=== PATIENT | female | born 1940 | race Caucasian/White ===

== ENCOUNTER → 2023-06-23 12:32 | Outpatient (REF) | payer MEDICARE, SELFPAY | LOC: MRI 12:32 | PROVIDERS: ATTENDING PHYSICIAN Internal Medicine Critical Care Medicine; FAMILY PHYSICIAN Family Medicine | DX: K86.89 Other specified diseases of pancreas (principal) | CPT/HCPCS: 74183; A9575 ==

== ENCOUNTER 2023-10-03 18:15 | Emergency (ER) | payer MEDICARE, SELFPAY ==
[2023-10-03 18:21] VITALS: BP 162/99
--- NOTE | 2023-10-03 19:39 | ED.GENMED ---
History of Present Illness
General
Chief Complaint: Fall
Source: patient
Exam Limitations: none
Time Seen by Provider: 10/03/23 19:26
History of Present Illness
History of Present Illness:
83-year-old female tripped and fell landing on her right shoulder. Also hit both her knees. Slight contusion to the right. No LOC. No anticoagulation. Clearly major pain is to the right shoulder area. Still has some minor bilateral knee pain
although able to ambulate. No facial pain no headache no nausea or vomiting.
Past History
Past History
ED Past Medical History: HTN
ED Past Surgical History:
Social History
Tobacco: Non-smoker
Alcohol: None
Personal:
Living: alone
Review of Systems
Review of Systems
All Other Systems: Not applicable
Respiratory: Reports no symptoms
Cardiac: Reports no symptoms
ABD/GI: Reports no symptoms
Phy Exam
Physical Exam
Physical Exam:
TRAUMA EXAM:
VITAL SIGNS: Vital signs reviewed, cooperative
DISTRESS: No active disease
EYES: Pupils reactive, minimal area of ecchymosis/contusion at the right suborbital area.
NOSE: No deformity or epistaxis
FACE AND SCALP: No scalp or facial trauma
NECK: Supple nontender
RESPIRATORY: No distress, no tender chest wall
CARDIAC: No murmur, pulses equal and strong
ABDOMEN: Soft nontender
SKIN: Slight area of ecchymosis under the right eye. Slight contusion/hematoma over the left patella.
EXTREMITIES: Swelling tenderness to the right shoulder. Self splinting. No AC tenderness. No clavicle tenderness. Right lower extremity with very minimal right patellar tenderness. Able to straight leg raise. No deformity. No laxity. Left
patella with a more significant hematoma contusion. Questionable palpation of the patellar defect although able to straight leg raise. Hips normal. Right upper extremity with good distal pulses and color. Right wrist forearm and elbow all within
normal limits
NEUROLOGICAL: Alert, oriented, no motor deficits
PSYCH: Mood affect normal
Course
Orders/Labs/Results
Orders:
Orders
10/03/23 18:23
Shoulder, Right, Trauma [CR Shoulder, Trauma - Right] Urgent
Comment:
Reason For Exam: fall
10/03/23 19:38
Shoulder Immobilizer Right- Tx ONCE
Acetaminophen [Tylenol] 650 mg PO NOW STA
Ibuprofen [Motrin] 400 mg PO NOW STA
Knee, Left 4 or More Views [CR Knee - Left 4 Or More View*] Urgent
Comment:
Reason For Exam: trauma
10/03/23 21:38
Knee Immobilizer Left-Treatmen ONCE
Vital Signs
Initial and Last Documented VS:
Initial Vital Signs
Temp Pulse Resp BP Pulse Ox
98.4 F 83 20 162/99 97
10/03/23 18:21 10/03/23 18:21 10/03/23 18:21 10/03/23 18:21 10/03/23 18:21
Last Documented Vital Signs
Temp Pulse Resp BP Pulse Ox
98.4 F 80 19 156/89 97
10/03/23 18:21 10/03/23 21:55 10/03/23 21:55 10/03/23 21:55 10/03/23 21:55
MDM/Problems Addressed
Differential Diagnosis Includes:
No signs of any major head injury. No anticoagulation. No indication for CT scan. Chest is benign abdomen is benign neurologically stable. We will x-ray the left knee with at least the remote chance of a patellar fracture. Although able to
straight leg raise. X-ray sent to orthopedics. Immobilizer and follow-up.
*Radiology
Radiology exam reviewed: preliminary read by ED provider (Patella fracture. Proximal humerus fracture) and radiology read reviewed (Patella fracture/proximal humerus fracture)
*Critical Care Note
Total Time (30-74mins, 75-104mins- exclusive of procedures): Not Applicable
Update Note
Update Note:
Reviewed with orthopedics. Shoulder immobilizer. Knee immobilizer and follow-up
ED Attending Note
-
Portions of this chart may have been created with voice recognition software.� Occasional wrong word or��sound alike� substitutions may have occurred due to the inherent limitations of voice recognition software.
Discharge Plan
Departure
Patient Disposition: Home (Routine Discharge)
Date of Disposition: 10/03/23
Time of Disposition: 21:38
Patient with high blood pressure during this ER visit?: Yes
Discharge Problem:
Proximal right humerus fracture, Patella fracture left, elevated blood pressure reading
Instructions: Patella Fracture (DC), Upper Arm Fracture ED, BLOOD PRESSURE
Prescriptions:
No Action
pantoprazole 40 mg Tablet,Delayed Release (Dr/Ec)
40 mg PO DAILY
valsartan 80 mg tablet
80 mg PO DAILY
PreserVision AREDS 14,320-226-200 [id number] capsule
1 cap PO BID
Referrals:
Judd Sun MD [Active] - Follow up in 2-3 days
UNKNOWN - PT DOES,NOT KNOW [Family Provider] -
Activity Restrictions/Additional Instructions:
Call the orthopedist first thing tomorrow morning to be seen in the next few days
Advil or Motrin for pain. Take with food. You could also add Tylenol
Interventions
Interventions:
*Risk Screen - Suicide Last Done: 10/03/23 18:21
*General Assessment Last Done: 10/03/23 18:21
*Neglect/Abuse Screening Last Done: 10/03/23 18:21
ED- Fall Risk Assessment Last Done: 10/03/23 20:53
*ED COVID-19 Vaccine History Last Done: 10/03/23 20:53
*Nursing Disposition Last Done: 10/03/23 21:56
ED-Musculoskeletal Assessment Last Done: 10/03/23 20:53
ED- Neurological Assessment Last Done: 10/03/23 20:53
ED-Skin Assessment Last Done: 10/03/23 20:53
Discharge Date and Time
Discharge Date/Time: 10/03/23 21:56
Print Language: SAO TOMEAN
[2023-10-03] MEDS: TYLENOL 650 MG PO (19:48)
[2023-10-03] MEDS: MOTRIN 400 MG PO (19:49)
[2023-10-03 21:55] VITALS: BP 156/89
== END 2023-10-03 21:56 | disposition home or self-care (01) ==
LOC: EMR 18:15
PROVIDERS: EMERGENCY PHYSICIAN Emergency Medicine
DX: S42.201A Unspecified fracture of upper end of right humerus, initial encounter for closed fracture (principal); S82.002A Unspecified fracture of left patella, initial encounter for closed fracture; S80.02XA Contusion of left knee, initial encounter; M25.562 Pain in left knee; M25.561 Pain in right knee; W01.0XXA Fall on same level from slipping, tripping and stumbling without subsequent striking against object, initial encounter; I10 Essential (primary) hypertension
CPT/HCPCS: 99284; 29505; 73030; 73564

== ENCOUNTER 2023-10-05 09:38 | Emergency (ER) | payer MEDICARE, SELFPAY ==
[2023-10-05 09:46] VITALS: BP 100/56
--- NOTE | 2023-10-05 10:50 | ED.GENMED ---
History of Present Illness
General
Chief Complaint: Social Service Referral
Source: patient
Exam Limitations: none
Time Seen by Provider: 10/05/23 10:40
History of Present Illness
History of Present Illness:
83-year-old female with history of hypertension presents for reevaluation. She was here 2 days ago after a fall and diagnosed with a proximal humerus fracture on the right side of the left patellar fracture. She was seen by orthopedics today and
was referred back here for potential placement into rehab. Being at home by herself is proven to be a hardship. Orthopedics recommended conservative treatment for both injuries. She takes losartan for hypertension and is not anticoagulated.
Prior to the injury she was ambulatory and functional on her own without any assistive devices
Past History
Past History
ED Past Medical History: HTN
ED Past Surgical History:
Social History
Tobacco: Non-smoker
Alcohol: None
Personal:
Living: alone
Phy Exam
Physical Exam
Physical Exam:
General: Well-appearing female no acute respiratory distress
HEENT: Normocephalic atraumatic heart: Regular rate and rhythm no murmurs
Lungs: Clear no wheeze or rales
Musculoskeletal exam: Right upper extremity in a sling. Tenderness about the shoulder. Left lower leg in knee immobilizer.
Neurologic: Alert and oriented no facial asymmetry or slurred speech
Course
Orders/Labs/Results
Orders:
Orders
10/05/23 10:49
Case Management Consult ONCE
Case Management Consult: Discharge Planning
Physical Therapy Consult [Pt Eval And Treat] Urgent
Activity Level: Ambulate
Vital Signs
Initial and Last Documented VS:
Initial Vital Signs
Temp Pulse Resp BP Pulse Ox
98.4 F 89 18 100/56 97
10/05/23 09:46 10/05/23 09:46 10/05/23 09:46 10/05/23 09:46 10/05/23 09:46
Last Documented Vital Signs
Temp Pulse Resp BP Pulse Ox
98.4 F 80 19 114/62 98
10/05/23 09:46 10/05/23 12:44 10/05/23 12:44 10/05/23 12:44 10/05/23 12:44
MDM/Problems Addressed
Differential Diagnosis Includes:
Patient with known right proximal humerus and left patellar fracture. Being at home alone is proving to be a hardship. Sent here for placement into rehab. Consulted case management and physical therapy.
*Critical Care Note
Total Time (30-74mins, 75-104mins- exclusive of procedures): Not Applicable
Update Note
Update Note:
Patient was evaluated by physical therapy and case management. Case management able to get a bed for the patient at [facility]. Patient will be sent therapy
ED Attending Note
-
Portions of this chart may have been created with voice recognition software.� Occasional wrong word or��sound alike� substitutions may have occurred due to the inherent limitations of voice recognition software.
Discharge Plan
Departure
Patient Disposition: Acute Rehab Facility
Date of Disposition: 10/05/23
Time of Disposition: 16:42
Discharge Problem:
Fracture of proximal end of humerus, Fracture, patella
Prescriptions:
No Action
pantoprazole 40 mg Tablet,Delayed Release (Dr/Ec)
40 mg PO DAILY
valsartan 80 mg tablet
80 mg PO DAILY
PreserVision AREDS [id number] [id number] capsule
1 cap PO BID
Referrals:
Isaias Everett MD [Family Provider] -
Interventions
Interventions:
*Risk Screen - Suicide Last Done: 10/05/23 09:48
*General Assessment Last Done: 10/05/23 09:48
*Neglect/Abuse Screening Last Done: 10/05/23 09:48
Discharge Date and Time
Print Language: PANAMANIAN
--- NOTE | 2023-10-05 11:31 | CM ---
Chart reviewed. CM introduced self and role. Patient sitting up in litter. Her son and her close friend (Elder from [employer]) were also at bedside. Charisse lives alone. Patient had a fall on 10/02, came to ED and sent home. Patient stated that today, 'I
couldn't get my feet on floor'. Her son was supporting her, but was unable to help her up today. Her friend from [employer] came over and helped her off the chair. He then drove her to the hospital.
CM explained patient's insurance, prior authorization process and that will PT will be in to assess and evaluate. Patient agreeable to STR, if it is needed.
SNF referrals placed via [facility].
[2023-10-05 12:44] VITALS: BP 114/62
--- NOTE | 2023-10-05 13:09 | CM ---
Addendum entered by Sabrina Garcia 10/05/23 15:33:
At 1500, CM called [facility] who stated auth was still in review. VINITA and bedside RN made aware.
Original Note:
CM called [facility] at [phone]. Started authorizaton over phone.
Clinicals faxed to: [phone].
PLAN
Short term rehab at [facility]. Reference number: [id number].
--- NOTE | 2023-10-05 16:32 | CM ---
CM spoke with [facility] commercial sales representative. Auth could not be approved for [facility] due to patient not meeting certain criteria.
Patient agreeable to going to [facility], which is in-network.
AUTHORIZATION NUMBER: [id number]
SOC: Today, 10/04, with next review on 10/09.
Fax next review to [phone].
All above information was relayed to Meghan liaison at [facility].
--- NOTE | 2023-10-05 16:37 | CM ---
[facility]
FAX: [phone]
REPORT: [phone] ext. [phone]
[2023-10-05 16:48] VITALS: BP 116/61
--- NOTE | 2023-10-05 17:06 | CM ---
CM spoke with patient's friend Yinka who will provide transportation [facility]
Bill
[phone]
WILLIAM spoke with patient's son Byron who provided Bill's Phone number [phone]
[2023-10-05 17:48] VITALS: BP 133/66
== END 2023-10-05 17:49 ==
LOC: EMR 09:38
PROVIDERS: EMERGENCY PHYSICIAN Emergency Medicine; FAMILY PHYSICIAN Family Medicine
DX: S82.001A Unspecified fracture of right patella, initial encounter for closed fracture (principal); S82.002A Unspecified fracture of left patella, initial encounter for closed fracture; W19.XXXA Unspecified fall, initial encounter; I10 Essential (primary) hypertension
CPT/HCPCS: 99285; 29505

== ENCOUNTER 2023-12-15 06:08 | Day surgery (SDC) | payer MEDICARE, SELFPAY ==
[2023-12-15 07:30] VITALS: BMI 24.0
[2023-12-15 07:40] VITALS: BP 142/71
[2023-12-15 07:45] VITALS: BMI 24.0
[2023-12-15 08:00] VITALS: BMI 24.0
[2023-12-15 08:02] LABS: Glucose - Point of Care 165 mg/dl (70-99)
[2023-12-15 10:15] VITALS: BP 109/62
[2023-12-15 10:30] VITALS: BP 114/59
[2023-12-15 10:45] VITALS: BP 108/62
== END 2023-12-15 11:04 | disposition home or self-care (01) ==
LOC: SDS 06:08
PROVIDERS: ATTENDING PHYSICIAN Internal Medicine Gastroenterology
DX: K86.2 Cyst of pancreas (principal); R93.3 Abnormal findings on diagnostic imaging of other parts of digestive tract
CPT/HCPCS: 43242; 88173; 82962

== ENCOUNTER 2024-04-27 13:44 | Emergency (ER) | payer MEDICARE, SELFPAY ==
[2024-04-27 13:53] VITALS: BP 189/79
[2024-04-27 14:06] LABS: % Basophils 0.8 % (0-2); % Eosinophils 0.6 % (0-6); % Immature Granulocytes 0.3 % (0-0.5); % Lymphocytes 15.3 % (20.5-51.1); % Monocytes 5.1 % (1.7-9.3); % Neutrophils 77.9 % (42.2-75.2); Absolute Basophils 0.1 10^3/uL (0-0.2); Absolute Monocytes 0.3 10^3/uL (0.1-0.6); Absolute Neutrophils 5.1 10^3/uL (1.4-6.5); Hematocrit 40.1 % (37.0-47.0); Hemoglobin 13.9 g/dL (12.0-16.0); Mean Corp Hgb Conc. 34.7 g/dL (33.0-37.0); Mean Corpuscular Hgb 30.8 pg (27.0-31.0); Mean Corpuscular Volume 88.9 fL (81.0-99.0); Mean Platelet Volume 9.8 fL (7.4-10.4); Nucleated Red Blood Cells % 0 %; Platelet Count 163 10^3/uL (130-400); Red Blood Cell Count 4.51 10^6/uL (4.20-5.40); Red Cell Dist. Width 12.4 % (11.5-14.5); White Blood Cell Count 6.5 10^3/uL (4.8-10.8)
[2024-04-27 14:32] LABS: ALT (SGPT) 14 U/L (0-35); AST (SGOT) 19 U/L (14-36); Albumin 4.3 g/dl (3.5-5.0); Alkaline Phosphatase 114 U/L (38-126); Blood Urea Nitrogen 21 mg/dl (7-17); Calcium 9.2 mg/dl (8.4-10.2); Carbon Dioxide 28 mmol/L (22-30); Chloride 103 mmol/L (98-107); Glucose 123 mg/dl (70-99); Potassium 4.3 mmol/L (3.5-5.1); Sodium 140 mmol/L (135-145); Total Bilirubin 0.8 mg/dl (0.2-1.3); Total Protein 7.1 g/dl (6.3-8.2); eGFR > 60.00
[2024-04-27 16:26] VITALS: BP 116/54
[2024-04-27 16:35] VITALS: BMI 25.0
[2024-04-27 17:00] VITALS: BP 129/71
--- NOTE | 2024-04-27 23:01 | ED.GENMED ---
History of Present Illness
General
Chief Complaint: Blood Pressure Problem
Source: patient
Exam Limitations: none
Time Seen by Provider: 04/27/24 16:20
Nursing documentation reviewed up to this point in time: agreed with
History of Present Illness
History of Present Illness:
Patient to ED for evaluation of elevated blood pressure readings. States she was at PT today and BP was elevated. Advised by staff to come to ED. SHe has a history of HTN and reports complaince with her medications. Brought to ED by spouse for
evl.
Past History
Past History
ED Past Medical History: HTN
ED Past Surgical History:
Social History
Tobacco: Non-smoker
Alcohol: None
Personal:
Living: alone
Review of Systems
Review of Systems
Allergies reviewed?: Yes
All Other Systems: ROS reviewed and negative except as documented in HPI and ROS
Constitutional: Reports no symptoms
EENT: Reports no symptoms
Respiratory: Reports no symptoms
Cardiac: Reports other (Elevated BP reading at PT today)
ABD/GI: Reports no symptoms
: Reports no symptoms
Musculoskeletal: Reports no symptoms
Skin: Reports no symptoms
Neurological: Reports no symptoms
Psychiatric: Reports no symptoms
Phy Exam
General Physical Exam
General Presentation: well appearing and no apparent distress
General age: appears stated age
General Skin: warm and dry
General Habitus: normal
General Mental: alert
Cardiovascular Exam
Cardiovascular Exam: regular rate/rhythm and no edema
Pulmonary Exam
Pulmonary Exam: lungs clear and no respiratory distress
Gastrointestinal Exam
Gastrointestinal Exam: normal bowel sounds, non tender, soft and no organomegaly
Neurological Exam
Neurological Exam: alert, oriented x3, CN II-XII intact, no motor deficits, no sensory deficits and speech normal
Musculoskeletal Exam
Musculoskeletal Exam: full ROM and neuro vasc intact
Skin Exam
Skin Exam: normal color, warm/dry and no rash
Psychiatric Exam
Psychiatric Exam: normal mood/affect
Course
Orders/Labs/Results
Orders:
Orders
04/27/24 13:59
Complete Blood Count/With Diff Urgent
Comprehensive Metabolic Panel Urgent
Abnormal Lab Results
04/27/24
13:59
Absolute Lymphs (auto) 1.0 L 10^3/uL
(1.2-3.4)
Neutrophils % 77.9 H %
(42.2-75.2)
Lymphocytes % 15.3 L %
(20.5-51.1)
BUN 21 H mg/dl
(7-17)
Glucose 123 H mg/dl
(70-99)
04/27/24 13:59
04/27/24 13:59
Vital Signs
Initial and Last Documented VS:
Initial Vital Signs
Temp Pulse Resp BP Pulse Ox
98.6 F 83 18 189/79 98
04/27/24 13:53 04/27/24 13:53 04/27/24 13:53 04/27/24 13:53 04/27/24 13:53
Last Documented Vital Signs
Temp Pulse Resp BP Pulse Ox
98.6 F 73 19 129/71 98
04/27/24 13:53 04/27/24 17:15 04/27/24 17:15 04/27/24 17:00 04/27/24 13:53
*EKG
Interpretation: normal
Rate: normal
Rhythm: sinus
*Critical Care Note
Total Time (30-74mins, 75-104mins- exclusive of procedures): Not Applicable
Update Note
Update Note:
BP monitored while in ED. Highest reading 124/78. She is asymptomatic. Reports complaince with her medications. Will discharge home and she will follow up with PCP on Tuesday. Given instructions on s/s to return to ED and she is agreeable to
plan.
ED Attending Note
-
Portions of this chart may have been created with voice recognition software.� Occasional wrong word or��sound alike� substitutions may have occurred due to the inherent limitations of voice recognition software.
Discharge Plan
Departure
Patient Disposition: Home (Routine Discharge)
Date of Disposition: 04/27/24
Time of Disposition: 17:17
Patient with high blood pressure during this ER visit?: No
Condition: Good
Covid-19: Not Applicable
Discharge Problem:
Elevated blood pressure reading
Instructions: High Blood Pressure (DC)
Prescriptions:
No Action
pantoprazole 40 mg Tablet,Delayed Release (Dr/Ec)
40 mg PO DAILY
valsartan 80 mg tablet
80 mg PO DAILY
PreserVision AREDS 14,654-226-200 [id number] capsule
1 cap PO QPM
Referrals:
Isaias Everett MD [Family Provider] - Tomorrow
Activity Restrictions/Additional Instructions:
Continue your blood pressure medication as prescribed.
Interventions
Interventions:
*Risk Screen - Suicide Last Done: 04/27/24 13:53
*General Assessment Last Done: 04/27/24 13:53
*Neglect/Abuse Screening Last Done: 04/27/24 13:53
ED- Fall Risk Assessment Last Done: 04/27/24 16:37
*ED COVID-19 Vaccine History Last Done: 04/27/24 16:36
*Nursing Disposition Last Done: 04/27/24 17:36
ED- Cardiac Assessment Last Done: 04/27/24 16:36
ED- Neurological Assessment Last Done: 04/27/24 16:36
ED- Pulmonary Assessment Last Done: 04/27/24 16:36
Discharge Date and Time
Discharge Date/Time: 04/27/24 17:36
Print Language: SAMOAN
== END 2024-04-27 17:36 | disposition home or self-care (01) ==
LOC: EMR 13:44
PROVIDERS: Emergency Medicine; EMERGENCY PHYSICIAN Student in an Organized Health Care Education/Training Program; FAMILY PHYSICIAN Family Medicine
DX: I10 Essential (primary) hypertension (principal)
CPT/HCPCS: 99282; 80053; 85025

== ENCOUNTER → 2024-11-15 11:35 | Outpatient (REF) | payer MEDICARE, SELFPAY | LOC: PAVMRI 11:35 | PROVIDERS: ATTENDING PHYSICIAN Nurse Practitioner; FAMILY PHYSICIAN Family Medicine | DX: K86.2 Cyst of pancreas (principal) | CPT/HCPCS: 74183; A9575 ==